=== PATIENT | female | born 1975 | race Caucasian/White ===

== ENCOUNTER 2016-06-15 16:56 | Observation (INO) | payer MEDICAID, OTHER ==
[~2016-06-15] VITALS: Ht 167.6 cm; Wt 92.0 kg
[~2016-06-15 16:56] MED LIST: LORTA5 PO; TAMS0.4C67 PO
[2016-06-15 18:36] VITALS: BP 143/80; PULSE 54; RESP 20; TEMP 98.8; O2SAT 98
[2016-06-15 19:19] VITALS: BP 128/80; PULSE 60; RESP 18; O2SAT 98
[2016-06-15 19:20] VITALS: BP 124/74; PULSE 60; RESP 18; O2SAT 98
[2016-06-15] MEDS ORDERED: SODIUM CHLORIDE 0.9% FLUSH 5 ML FLUSH IVF PRN ×2 (19:30→21:30)
[2016-06-15 19:39] LABS: AUTOMATED NEUTROPHIL # 5.4 TH/MM3 (1.8-7.7); BASOPHIL # 0.1 TH/MM3 (0-0.2); BASOPHIL % 0.8 % (0.0-2.0); EOSINOPHIL # 0.1 TH/MM3 (0-0.4); EOSINOPHIL % 1.1 % (0.0-4.0); HEMATOCRIT 36.6 % (35.0-46.0); HEMO FLAGS DIFF FINAL; LYMPH % 27.8 % (9.0-44.0); LYMPHOCYTE # 2.3 TH/MM3 (1.0-4.8); MEAN CELL VOLUME 91.5 FL (80.0-100.0); MEAN CORPUSCULAR HEMOGLOBIN 31.5 PG (27.0-34.0); MEAN CORPUSCULAR HGB CONC 34.4 % (32.0-36.0); MONO % 5.9 % (0.0-8.0); NEUT % 64.4 % (16.0-70.0); PLATELET COUNT 358 TH/MM3 (150-450); RED CELL DISTRIBUTION WIDTH 13.3 % (11.6-17.2); WHITE BLOOD COUNT 8.4 TH/MM3 (4.0-11.0)
--- NOTE | 2016-06-15 19:43 | PD ---
HPI . Chest pain Chief Complaint: Chest Pain Time Seen by Provider: 19:18 Travel History International Travel<30 days: No Contact w/Intl Traveler<30days: No Traveled to known affect area: No History of Present Illness HPI This patient presents with the chief complaint of a sharp left-sided chest pain that radiates to the left shoulder blade. This started at 4:30 PM. She states that her fingers feel cold and numb. She also reports a history of palpitations occasionally for the last 3-4 days. She denies shortness of breath or nausea. She does admit to diaphoresis. She was initially treated by EMS. She was given aspirin and nitroglycerin. She does report that her pain was improved by oxygen and nitroglycerin. PFSH Past Medical History Hx Anticoagulant Therapy: No Blood Disorders: No Cancer: No Diabetes: No Diminished Hearing: No Endocrine: No Gastrointestinal Disorders: Yes ("SMALL MASS ON MY LIVER") Immune Disorder: No Kidney Stones: Yes Musculoskeletal: No Neurologic: No Psychiatric: No Reproductive: Yes (hx PID) Respiratory: No Immunizations Current: Yes Tetanus Vaccination: > 5 Years Influenza Vaccination: No ?: Not LMP: 06/15/16 : 2 Para: 2 Past Surgical History Cholecystectomy: Yes Other Surgery: No Social History Alcohol Use: No Tobacco Use: Yes (ECIGS) Substance Use: No Allergies-Medications (Allergen,Severity, Reaction): Coded Allergies: Bactrim (Verified Allergy, Intermediate, widespread rash, 06/15/16) Reported Meds & Prescriptions Reported Meds & Active Scripts Active Review of Systems Except as stated in HPI: all other systems reviewed are Neg General / Constitutional: Positive: Other (diaphoresis), No: Fever, Chills Cardiovascular: Positive: Chest Pain or Discomfort, Palpitations Respiratory: No: Shortness of Breath Gastrointestinal: No: Nausea, Vomiting Physical Exam Narrative GENERAL: This is a healthy-appearing young woman who is in no acute distress. SKIN: Warm and dry. HEAD: Atraumatic. Normocephalic. EYES: Pupils equal and round. ENT: No nasal bleeding or discharge. Mucous membranes pink and moist. NECK: Trachea midline. Neck is supple. CARDIOVASCULAR: Regular rate and rhythm. Heart sounds are normal. RESPIRATORY: No accessory muscle use. Lungs are clear with full air movement throughout. She does have some tenderness to palpation of the left chest wall. GASTROINTESTINAL: Abdomen soft, non-tender, nondistended. MUSCULOSKELETAL: No obvious deformities. No edema. She has some tenderness to palpation of the left shoulder blade area. NEUROLOGICAL: Awake and alert. No obvious cranial nerve deficits. Motor grossly within normal limits. Normal speech. PSYCHIATRIC: Appropriate mood and affect; insight and judgment normal. Data Data Last Documented VS Vital Signs Date Time Temp Pulse Resp B/P Pulse Ox O2 Delivery O2 Flow Rate FiO2 06/15/16 19:20 60 18 124/74 98 Room Air 06/15/16 18:36 98.8 Orders Electrocardiogram (06/15/16 ) Basic Metabolic Panel (Bmp) (06/15/16 19:18) Ckmb (Isoenzyme) Profile (06/15/16 19:18) Complete Blood Count With Diff (06/15/16 19:18) Magnesium (Mg) (06/15/16 19:18) Troponin I (06/15/16 19:18) Chest, Single Ap (06/15/16 19:18) Ecg Monitoring (06/15/16 19:18) Bilateral Bp Monitoring (06/15/16 19:18) Iv Access Insert/Monitor (06/15/16 19:18) Oximetry (06/15/16 19:18) Oxygen Administration (06/15/16 19:18) Sodium Chloride 0.9% Flush (Ns Flush) (06/15/16 19:30) Labs Laboratory Tests Test 06/15/16 19:25 White Blood Count 8.4 TH/MM3 Red Blood Count 4.00 MIL/MM3 Hemoglobin 12.6 GM/DL Hematocrit 36.6 % Mean Corpuscular Volume 91.5 FL Mean Corpuscular Hemoglobin 31.5 PG Mean Corpuscular Hemoglobin 34.4 % Concent Red Cell Distribution Width 13.3 % Platelet Count 358 TH/MM3 Mean Platelet Volume 8.0 FL Neutrophils (%) (Auto) 64.4 % Lymphocytes (%) (Auto) 27.8 % Monocytes (%) (Auto) 5.9 % Eosinophils (%) (Auto) 1.1 % Basophils (%) (Auto) 0.8 % Neutrophils # (Auto) 5.4 TH/MM3 Lymphocytes # (Auto) 2.3 TH/MM3 Monocytes # (Auto) 0.5 TH/MM3 Eosinophils # (Auto) 0.1 TH/MM3 Basophils # (Auto) 0.1 TH/MM3 CBC Comment DIFF FINAL Differential Comment Sodium Level 139 MEQ/L Potassium Level 3.7 MEQ/L Chloride Level 107 MEQ/L Carbon Dioxide Level 25.2 MEQ/L Anion Gap 7 MEQ/L Blood Urea Nitrogen 10 MG/DL Creatinine 0.60 MG/DL Estimat Glomerular Filtration 112 ML/MIN Rate Random Glucose 81 MG/DL Calcium Level 8.1 MG/DL Magnesium Level 2.2 MG/DL Total Creatine Kinase 31 U/L Troponin I LESS THAN 0.02 NG/ML Exceptions Acute Myocardial Infarction ASA Not Given on Arrival: Already Given by EMS MDM Medical Decision Making Medical Screen Exam Complete: Yes Emergency Medical Condition: Yes Differential Diagnosis Differential diagnosis of chest pain includes but is not limited to musculoskeletal pain, pulmonary embolism, acute coronary syndrome, pneumonia, pleurisy Narrative Course Patient presents for evaluation of left-sided chest pain radiating to the left shoulder. By exam, it is musculoskeletal. However, her symptoms improved with oxygen and nitroglycerin. CBC & BMP Diagram 06/15/16 19:25 Last Impressions Chest X-Ray 06/15/161917 Signed Impressions: Service Date/Time: Wednesday, June 15, 2016 19:36 - CONCLUSION: No acute disease. Mulugeta Perry MD The chest x-ray was independently viewed by me. Initial cardiac enzymes are negative. Since the patient improved with oxygen and nitroglycerin, she will be admitted to the chest pain center for further evaluation. Diagnosis Primary Impression: Chest pain Qualified Code: R07.9 - Chest pain, unspecified type Admitting Information Admitting Physician Requests: Observation Condition: Stable Alexandra Romeo MD Jun 15, 2016 19:43
[2016-06-15 20:09] LABS: ANION GAP 7 MEQ/L (5-15); BICARBONATE 25.2 MEQ/L (21.0-32.0); BLOOD UREA NITROGEN 10 MG/DL (7-18); CHLORIDE 107 MEQ/L (98-107); GLOMERULAR FILTRATION RATE 112 ML/MIN (>89); MAGNESIUM 2.2 MG/DL (1.5-2.5); POTASSIUM 3.7 MEQ/L (3.5-5.1); SODIUM (NA) 139 MEQ/L (136-145)
[2016-06-15 20:14] LABS: CREATINE KINASE 31 U/L (26-192)
--- NOTE | 2016-06-15 20:27 | RADRPT ---
EXAM DATE/TIME: 06/15/2016 19:36 [facility] COMPARISON: No previous studies available for comparison. INDICATIONS : Chest pain. MEDICAL HISTORY : Renal calculi. SURGICAL HISTORY : Cholecystectomy. ENCOUNTER: Initial ACUITY: 1 day PAIN SCORE: 4/10 LOCATION: Bilateral chest FINDINGS: A single view of the chest demonstrates the lungs to be symmetrically aerated without evidence of mas s, infiltrate or effusion. The cardiomediastinal contours are unremarkable. Osseous structures are intact. CONCLUSION: No acute disease. Mulugeta Perry MD on June 15, 2016 at 20:26 Board Certified Radiologist. This report was verified electronically.
[2016-06-15] MEDS ORDERED: TEMAZEPAM 15 MG CAP PO PRN (21:30)
[2016-06-15] MEDS ORDERED: NITROGLYCERIN 0.4 MG SL 25 TABS/BTL SL PRN (21:30)
[2016-06-16] MEDS ORDERED: SODIUM CHLORIDE 0.9% FLUSH 5 ML FLUSH IVF SCH (09:00)
--- NOTE | 2016-06-16 23:53 | EKG ---
Date Performed: 06/15/2016 Time Performed: 18:56:58 PTAGE: 40 years EKG: SINUS BRADYCARDIA LOW QRS VOLTAGE IN PRECORDIAL LEADS SEPTAL MYOCARDIAL INFARCTION ABNORMAL ECG PREVIOUS TRACING : 01/06/2008 21.29 Compared to prior tracing no significant change DOCTOR: Sheldon Arreguin Interpretating Date/Time 06/16/2016 23:51:54
== END 2016-06-15 21:52 | disposition left against medical advice (07) ==
LOC: NEPA 16:56 → NEDA 21:30
PROVIDERS: ADMIT Internal Medicine Cardiovascular Disease; ATTEND Internal Medicine Cardiovascular Disease
DX: R07.9 Chest pain, unspecified (principal); R20.0 Anesthesia of skin; R00.2 Palpitations; R61 Generalized hyperhidrosis; N73.9 Female pelvic inflammatory disease, unspecified; F17.200 Nicotine dependence, unspecified, uncomplicated
CPT/HCPCS: 71010; 80048; 82550; 83735; 84484; 85025; 93005; 99285; G0378

== ENCOUNTER 2016-07-17 09:33 | Emergency (ER) | payer MEDICAID ==
[~2016-07-17] VITALS: Ht 167.6 cm; Wt 93.0 kg
[2016-07-17 09:47] VITALS: BP 115/75; PULSE 62; RESP 18; TEMP 98.6; O2SAT 96
[2016-07-17] MEDS ORDERED: AMOX500C PO ×2 (10:45→10:46)
--- NOTE | 2016-07-17 10:45 | PD ---
HPI Chief Complaint: ENT Complaint Time Seen by Provider: 10:33 Travel History International Travel<30 days: No Contact w/Intl Traveler<30days: No Traveled to known affect area: No History of Present Illness HPI This 40-year-old female is complaining of sharp pain in her left ear. She says she has been sick for several days. She's had a sore throat and congestion. Her left ear started hurting yesterday. He is generally healthy. There is no chance of . PFSH Past Medical History Hx Anticoagulant Therapy: No Blood Disorders: No Cancer: No Diabetes: No Diminished Hearing: No Endocrine: No Gastrointestinal Disorders: Yes ("SMALL MASS ON MY LIVER") Immune Disorder: No Kidney Stones: Yes Musculoskeletal: No Neurologic: No Psychiatric: No Reproductive: Yes (hx PID) Respiratory: No Immunizations Current: Yes Influenza Vaccination: No ?: Not LMP: 2 WEEKS AGO : 2 Para: 2 Past Surgical History Cholecystectomy: Yes Other Surgery: No Social History Alcohol Use: No Tobacco Use: Yes (ECIGS) Substance Use: No Allergies-Medications (Allergen,Severity, Reaction): Coded Allergies: Bactrim (Verified Allergy, Intermediate, widespread rash, 07/17/16) Reported Meds & Prescriptions Reported Meds & Active Scripts Active No Active Prescriptions or Reported Medications Review of Systems General / Constitutional: No: Fever, Chills Eyes: No: Diploplia HENT: Positive: Sore Throat, Rhinitis, Earache Cardiovascular: No: Chest Pain or Discomfort Respiratory: No: Cough Gastrointestinal: No: Vomiting, Diarrhea Genitourinary: No: Urgency, Frequency Musculoskeletal: No: Myalgias Skin: No Rash Physical Exam Narrative GENERAL: Well-developed female SKIN: Focused skin assessment warm/dry. HEAD: Atraumatic. Normocephalic. EYES: Pupils equal and round. No scleral icterus. No injection or drainage. ENT: No nasal bleeding or discharge. Mucous membranes pink and moist. Posterior pharynx is erythematous. There is erythema of the left TM. The right is normal NECK: Trachea midline. No JVD. CARDIOVASCULAR: Regular rate and rhythm. No murmur appreciated. RESPIRATORY: No accessory muscle use. Clear to auscultation. Breath sounds equal bilaterally. GASTROINTESTINAL: Abdomen soft, non-tender, nondistended. Hepatic and splenic margins not palpable. MUSCULOSKELETAL: No obvious deformities. No clubbing. No cyanosis. No edema. NEUROLOGICAL: Awake and alert. No obvious cranial nerve deficits. Motor grossly within normal limits. Normal speech. PSYCHIATRIC: Appropriate mood and affect; insight and judgment normal. Data Data Last Documented VS Vital Signs Date Time Temp Pulse Resp B/P Pulse Ox O2 Delivery O2 Flow Rate FiO2 07/17/16 10:19 18 07/17/16 09:47 98.6 62 115/75 96 MDM Medical Decision Making Medical Screen Exam Complete: Yes Emergency Medical Condition: Yes Medical Record Reviewed: Yes Differential Diagnosis Differential includes upper respiratory infection, eustachian tube dysfunction, otitis media Narrative Course Exam is consistent with left otitis media Diagnosis Primary Impression: Left otitis media Qualified Code: H66.002 - Acute suppurative otitis media of left ear without spontaneous rupture of tympanic membrane, recurrence not specified Scripts Amoxicillin 500 Mg Ntb404 Mg PO TID 7 Days Ref 0 Prov:Jerry Cuellar MD 07/17/16 Disposition: 01 DISCHARGE HOME Condition: Stable Jerry Cuellar MD Jul 17, 2016 10:45
== END 2016-07-17 10:55 | disposition home or self-care (01) ==
LOC: PHED 09:33
DX: H66.002 Acute suppurative otitis media without spontaneous rupture of ear drum, left ear (principal); R07.0 Pain in throat; Z72.0 Tobacco use; Z87.19 Personal history of other diseases of the digestive system
CPT/HCPCS: 99283

== ENCOUNTER 2017-03-03 18:10 | Emergency (ER) | payer MEDICAID ==
[~2017-03-03] VITALS: Ht 167.6 cm; Wt 98.0 kg
[~2017-03-03 18:10] MED LIST changes: +AMOX500C PO; -LORTA5 PO; -TAMS0.4C67 PO
[2017-03-03 18:15] VITALS: BP 175/74; PULSE 80; RESP 16; TEMP 98.3; O2SAT 98
--- NOTE | 2017-03-03 20:29 | RADRPT ---
EXAM DATE/TIME: 03/03/2017 19:29 [facility] COMPARISON: No previous studies available for comparison. INDICATIONS : Left lateral knee pain after feeling a "pop" while standing. MEDICAL HISTORY : Renal calculi SURGICAL HISTORY : Cholecystectomy. ENCOUNTER: Initial ACUITY: 2 months PAIN SCORE: 10/10 LOCATION: Left knee FINDINGS: Four view examination of the left knee demonstrates no evidence of fracture or dislocation. Bony min eralization is normal. The articular surfaces are intact. The suprapatellar soft tissues have a nor mal configuration. CONCLUSION: Unremarkable examination of the left knee. Vinod Ferrari MD on March 03, 2017 at 20:27 Board Certified Radiologist. This report was verified electronically.
[2017-03-03] MEDS ORDERED: KETOROLAC TROMETHAMINE 60 MG/2 ML (IM) VIAL IM ONE (20:30)
--- NOTE | 2017-03-03 20:40 | PD ---
HPI Chief Complaint: Pain: Acute or Chronic Time Seen by Provider: 19:05 Travel History International Travel<30 days: No Contact w/Intl Traveler<30days: No Traveled to known affect area: No History of Present Illness HPI 41-year-old female with left lateral knee pain times one day. Patient reports she was standing and felt a popping sensation and had immediate pain to the lateral aspect of the knee. Worse with weightbearing and relieved with rest. Patient is unable to fully extend the leg due to pain. His paresthesia or weakness. PFSH Past Medical History Hx Anticoagulant Therapy: No Blood Disorders: No Cancer: No Diabetes: No Diminished Hearing: No Endocrine: No Gastrointestinal Disorders: Yes ("SMALL MASS ON MY LIVER") Immune Disorder: No Kidney Stones: Yes Musculoskeletal: No Neurologic: No Psychiatric: No Reproductive: Yes (hx PID) Respiratory: No Immunizations Current: Yes ?: Not : 2 Para: 2 Past Surgical History Cholecystectomy: Yes Other Surgery: No Social History Alcohol Use: No Tobacco Use: Yes (ECIGS) Substance Use: No Allergies-Medications (Allergen,Severity, Reaction): Coded Allergies: sulfamethoxazole (Unverified Allergy, Intermediate, widespread rash, 03/03) trimethoprim (Unverified Allergy, Intermediate, widespread rash, 03/03/17) Reported Meds & Prescriptions Reported Meds & Active Scripts Active No Active Prescriptions or Reported Medications Review of Systems Except as stated in HPI: all other systems reviewed are Neg Physical Exam Narrative GENERAL: Well-nourished, well-developed patient. SKIN: Focused skin assessment warm/dry. HEAD: Normocephalic. EYES: No scleral icterus. No injection or drainage. CARDIOVASCULAR: Regular rate and rhythm without murmurs, gallops, or rubs. RESPIRATORY: Breath sounds equal bilaterally. No accessory muscle use. MUSCULOSKELETAL: No cyanosis, or edema. Attention to the left lower extremity: Tenderness to the lateral aspect of the knee. The joint is stable. Pain with flexion. 2+ pulses in the extremity. Brisk cap refill. Data Data Last Documented VS Vital Signs Date Time Temp Pulse Resp B/P (MAP) Pulse Ox O2 Delivery O2 Flow Rate FiO2 03/03/17 18:15 98.3 80 16 175/74 (107) 98 Orders Orders Knee, Complete (4vws) (03/03/17 ) Ketorolac Inj (Toradol Inj) (03/03/17 20:30) Splint Or Brace Apply/Monitor (03/03/17 20:17) [facility] Medical Decision Making Medical Screen Exam Complete: Yes Emergency Medical Condition: Yes Differential Diagnosis Knee sprain, meniscal injury, knee fracture Narrative Course 41-year-old female with left lateral knee pain times one day. Patient reports she was standing and felt a popping sensation and had immediate pain to the lateral aspect of the knee. Worse with weightbearing and relieved with rest. Patient is unable to fully extend the leg due to pain. On exam she has moderate tenderness to the lateral aspect. Extremities are brisk and intact. X -ray negative for fracture. He'll be treated for suspected lateral collateral ligament injury. Zachariah wrap and crutches provided to patient. Diagnosis Primary Impression: Knee LCL sprain Qualified Codes: S83.422A - Sprain of lateral collateral ligament of left knee , initial encounter Referrals: Orthopedist Departure Forms: Tests/Procedures, Work Release Enter return to work date: Mar 06, 2017 Additional Instructions: Ice and elevate the extremity. Continue to use Zachariah wrap for compression. Take Motrin 600-800 mg every 6-8 hours as needed for pain Scripts No Active Prescriptions or Reported Meds Disposition: 01 DISCHARGE HOME Condition: Stable So Gann Mar 03, 2017 20:40
== END 2017-03-03 20:54 | disposition home or self-care (01) ==
LOC: PHEFT 18:10
DX: S83.422A Sprain of lateral collateral ligament of left knee, initial encounter (principal); X58.XXXA Exposure to other specified factors, initial encounter
CPT/HCPCS: 73564; 96372; 99284; E0113; J1885

== ENCOUNTER 2017-07-12 07:13 | Emergency (ER) | payer MEDICAID ==
[~2017-07-12] VITALS: Ht 167.6 cm; Wt 98.9 kg
[2017-07-12 07:16] VITALS: BP 140/73; PULSE 74; RESP 16; TEMP 98.4; O2SAT 98
--- NOTE | 2017-07-12 07:32 | PD ---
HPI . Cold symptoms Chief Complaint: Cold / Flu Symptoms Time Seen by Provider: 07:28 Travel History International Travel<30 days: No Contact w/Intl Traveler<30days: No Traveled to known affect area: No History of Present Illness HPI Patient presents with a 5 day history of cold symptoms. She complains with laryngitis, nasal congestion, chest congestion, green rhinorrhea and sore throat. She has been taking TheraFlu with relief of her symptoms. Symptoms have been mild. They have been progressively worsening. PFSH Past Medical History Hx Anticoagulant Therapy: No Blood Disorders: No Cancer: No Diabetes: No Diminished Hearing: No Endocrine: No Gastrointestinal Disorders: Yes ("SMALL MASS ON MY LIVER") Immune Disorder: No Kidney Stones: Yes Musculoskeletal: No Neurologic: No Psychiatric: No Reproductive: Yes (hx PID) Respiratory: No Immunizations Current: Yes Influenza Vaccination: No ?: Not LMP: 06/15/17 : 2 Para: 2 Past Surgical History Cholecystectomy: Yes Other Surgery: No Social History Alcohol Use: No Tobacco Use: Yes (ECIGS) Substance Use: No Allergies-Medications (Allergen,Severity, Reaction): Coded Allergies: sulfamethoxazole (Unverified Allergy, Intermediate, widespread rash, ) trimethoprim (Unverified Allergy, Intermediate, widespread rash, 07/12/17) Reported Meds & Prescriptions Reported Meds & Active Scripts Active No Active Prescriptions or Reported Medications Review of Systems Except as stated in HPI: all other systems reviewed are Neg General / Constitutional: No: Fever, Chills Eyes: No: Drainage, Redness HENT: Positive: Sore Throat, Rhinorrhea, Congestion Respiratory: Positive: Cough Physical Exam Narrative GENERAL: Awake and alert and in no acute distress. SKIN: Warm and dry. Normal color. HEAD: Normocephalic/atraumatic. EYES: Pupils are equal. Extraocular movements are intact. ENT: Nasal turbinates no edema. There is no nasal discharge seen. Oropharynx is pink and moist with no erythema, tonsillar enlargement or exudate. NECK: Normal range of motion. No cervical lymphadenopathy. CARDIOVASCULAR: Regular rate and rhythm. Heart sounds are normal. RESPIRATORY: Nonlabored respirations. Lungs are clear with full air movement throughout. MUSCULOSKELETAL: Atraumatic. NEUROLOGICAL: Nonfocal. PSYCHIATRIC: Appropriate mood and affect. Data Data Last Documented VS Vital Signs Date Time Temp Pulse Resp B/P (MAP) Pulse Ox O2 Delivery O2 Flow Rate FiO2 07/12/17 07:16 98.4 74 16 140/73 (95) 98 MDM Medical Decision Making Medical Screen Exam Complete: Yes Emergency Medical Condition: Yes Differential Diagnosis Differential diagnosis includes but is not limited to influenza, upper respiratory infection, bronchitis, pneumonia Narrative Course This patient presents with a 5 day history of cold symptoms. She looks well clinically. Her symptoms are relieved with TheraFlu. I will discharge her to home with instructions and symptomatic care. Diagnosis Primary Impression: Upper respiratory infection Qualified Codes: J06.9 - Acute upper respiratory infection, unspecified Patient Instructions: General Instructions, Upper Respiratory Infection (DC) Additional Instructions: I recommend the use of a Neti Pot. You may use a nasal spray such as Afrin for up to 3 days as needed for nasal congestion. You may take an [id number] antihistamine such as Zyrtec, Rosi or Claritin as needed for runny secretions. You may take pseudoephedrine as needed for congestion. You will need to sign for this at the pharmacy. You may take plain Mucinex, 1200 mg twice a day as needed for thick secretions. You may take a cough syrup such as Delsym as needed for cough. Motrin as needed for fever and body aches. Throat lozenges/sprays as needed for sore throat. Warm salt water gargles for sore throat. Hot tea with lemon and honey also helps soothe a sore throat. Scripts No Active Prescriptions or Reported Meds Disposition: 01 DISCHARGE HOME Condition: Stable Alexandra Romeo MD Jul 12, 2017 07:32
== END 2017-07-12 07:42 | disposition home or self-care (01) ==
LOC: PHED 07:13
DX: J06.9 Acute upper respiratory infection, unspecified (principal); J34.89 Other specified disorders of nose and nasal sinuses; R09.81 Nasal congestion; R05 Cough; F17.290 Nicotine dependence, other tobacco product, uncomplicated; Z88.2 Allergy status to sulfonamides; Z88.8 Allergy status to other drugs, medicaments and biological substances; Z87.442 Personal history of urinary calculi
CPT/HCPCS: 99282